=== PATIENT | male | born 1945 | race Native Hawaiian/Other Pacific Islander ===

== ENCOUNTER 2018-03-02 11:54 | Outpatient (CLI) | payer OTHER ==
[~2018-03-02 11:54] MED LIST: ALBU90AE13 INH; ALBUTEROL0.083 % IN; ASPIRIN LOW STR81 MG PO; ATEN50TA36 PO; BENA20TA2 PO; BENZSOL4 OT; CLARITIN10 MG PO; FLUTMIS6 INH; GABA300C2 PO; LIPITOR80 MG PO; NASONEX50 MCG/AC; NEXIUM40 MG PO; NITR0.4S SL; OFLOXACIN0.31 OT; PEPCID40 MG OR; PEPCID40 MG PO; RYBIX ODT50 MG PO; SPIRIVA IN; TAMS0.4C PO
[2018-03-02 12:21] LABS: PLATELET COUNT 242 K/uL (142-355)
[2018-03-02 12:43] LABS: POTASSIUM 4.3 mmol/L (3.6-5.2); SODIUM 143 mmol/L (136-145)
== END 2018-03-02 23:56 | disposition home or self-care (01) ==
LOC: LABW 11:54 → RAD 11:54 → LABW 23:56
PROVIDERS: Family Medicine
DX: I10 Essential (primary) hypertension (principal); K21.9 Gastro-esophageal reflux disease without esophagitis; Z76.0 Encounter for issue of repeat prescription; R53.83 Other fatigue; N40.0 Benign prostatic hyperplasia without lower urinary tract symptoms; R06.02 Shortness of breath
CPT/HCPCS: 36415; 80053; 80061; 81000; 82306; 82552; 83036; 83735; 84154; 84439; 84443; 84484; 84550; 85027; 93005

== ENCOUNTER 2019-03-27 18:11 | Emergency (ER) | payer OTHER ==
[~2019-03-27] VITALS: Ht 180.3 cm; Wt 84.4 kg
[2019-03-27 19:49] LABS: PLATELET COUNT 237 K/uL (142-355)
[2019-03-27 19:56] LABS: POTASSIUM 3.8 mmol/L (3.6-5.2); SODIUM 139 mmol/L (136-145)
[2019-03-27 20:34] VITALS: BP 152/67; TEMP 97.1
== END 2019-03-27 20:35 | disposition home or self-care (01) ==
LOC: ED 18:11
PROVIDERS: Emergency Medicine
DX: R00.1 Bradycardia, unspecified (principal); T50.905A Adverse effect of unspecified drugs, medicaments and biological substances, initial encounter; Y92.89 Other specified places as the place of occurrence of the external cause
CPT/HCPCS: 80053; 82550; 83735; 84484; 85027; 93005; 99283

== ENCOUNTER 2020-05-15 15:12 | Outpatient (CLI) | payer OTHER | END 2020-05-15 19:54 | disposition home or self-care (01) | LOC: LABW 15:12 | PROVIDERS: ATTEND Family Medicine | DX: R36.9 Urethral discharge, unspecified (principal); R31.9 Hematuria, unspecified; M54.5 Low back pain | CPT/HCPCS: 81000; 87490; 87590 ==

== ENCOUNTER 2021-12-02 08:41 | Outpatient (CLI) | payer OTHER | END 2021-12-02 19:27 | disposition home or self-care (01) | LOC: LABW 08:41 | PROVIDERS: ATTEND Internal Medicine Interventional Cardiology | DX: E78.49 Other hyperlipidemia (principal); I25.119 Atherosclerotic heart disease of native coronary artery with unspecified angina pectoris; Z79.899 Other long term (current) drug therapy | CPT/HCPCS: 36415; 80061; 80076 ==